=== PATIENT | male | born 1995 | race Caucasian/White ===

== ENCOUNTER 2022-04-04 08:53 | Day surgery (SDC) | payer BC ==
[~2022-04-04] VITALS: Ht 172.7 cm; Wt 72.7 kg
[2022-04-04] MEDS ORDERED: AMITRIPTYLINE H25 M1 PO (09:04)
[2022-04-04 09:47] LABS: COLLECTION METHOD CLEAN CATCH
[2022-04-04 09:51] LABS: HEMATOCRIT 47.3 % (42.0-52.0); HEMOGLOBIN 16.1 g/dl (13.5-18.0); MEAN CELL VOLUME 92 fl (80.0-100.0); MEAN CORPUSCULAR HEMOGLOBIN 31 pg (27-31); MEAN CORPUSCULAR HGB CONC 34 g/dl (33.0-37.0); MEAN PLATELET VOLUME 10.7 fl (7.4-10.4); PLATELET COUNT 276 K/mm3 (130-400); RED BLOOD COUNT 5.14 M/mm3 (4.20-5.60); REDCELL DISTRIBUTION WIDTH-CV 12.4 % (11.5-14.5)
[2022-04-04 10:03] LABS: PH 6 (5-8); URINE APPEARANCE Clear (CLEAR/HAZY); URINE BILIRUBIN Negative (NEGATIVE); URINE BLOOD 2+ (NEGATIVE); URINE COLOR Yellow (YELLOW); URINE GLUCOSE Negative (NEGATIVE); URINE KETONE Negative (NEGATIVE); URINE LEUKOCYTE ESTERASE Trace (NEGATIVE); URINE NITRATE Negative (NEGATIVE); URINE PROTEIN(semi-quant) Negative (NEGATIVE); URINE UROBILINOGEN Negative (NEGATIVE)
[2022-04-04 10:04] LABS: MUCOUS Present (NOT PRESENT); URINE BACTERIA Rare /hpf (NONE SEEN)
[2022-04-04 10:06] LABS: ALBUMIN 4.7 gm/dL (3.5-5.0); BILIRUBIN,TOTAL 2.1 mg/dL (0.2-1.2); CALCIUM 9.4 mg/dL (8.4-10.2); CREATININE, serum 1.07 mg/dL (0.72-1.25); POTASSIUM 3.9 mmol/L (3.5-4.5); TOTAL PROTEIN 8.4 gm/dL (6.2-8.1)
[2022-04-04 10:27] LABS: BAND 1 % (0-10); LYMPHOCYTE 13 % (20.0-51.0); NEUTROPHILS 78 % (42.0-75.2); PLATELET ESTIMATE NORMAL (NORMAL)
[2022-04-04] MEDS ORDERED: NORCO 325 MG-51 TAB PO (13:14)
[2022-04-04 13:55] VITALS: BP 137/81; PULSE 86; TEMP 98.9
--- NOTE | 2022-04-04 13:55 | NUR ---
PT TO BAY 2 PER CART FROM PACU. RECEIVED REPORT FROM MARCELLA BURNS. VS OBTAINED. PT TOLERATING WATER. CALL LIGHT WITHIN REACH. PT SLEEPY ON 2L O2 PER NC. PT STATES HE IS COMFORTABLE AND PAIN IS CONTROLLED. RATES PAIN 1-2/10. PT DENIES ANY OTHER NEEDS AT THIS TIME.
[2022-04-04 14:10] VITALS: BP 134/77; PULSE 75
--- NOTE | 2022-04-04 14:10 | NUR ---
PT CONTINUES TO REST COMFORTABLY. CONTINUES TO DENY ANY NEEDS AT THIS TIME.
[2022-04-04 14:25] VITALS: BP 122/69; PULSE 70
--- NOTE | 2022-04-04 14:25 | NUR ---
PT TOLERATING MUFFIN AND WATER. CONTINUES TO STATE PAIN IS TOLERABLE. PT DENIES ANY NEEDS AT THIS TIME.
[2022-04-04 14:40] VITALS: BP 136/77; PULSE 69
--- NOTE | 2022-04-04 14:40 | NUR ---
PT CONTINUES TO DENY ANY PAIN. PT STATES HE IS READY FOR DISCHARGE.
--- NOTE | 2022-04-04 15:00 | NUR ---
IV DC'D AT THIS TIME. PT TOLERATED WELL.
--- NOTE | 2022-04-04 15:10 | NUR ---
DISCHARGE EDUCATION COMPLETED WITH PT. VERBALIZED UNDERSTANDING OF HOME AND FOLLOW UP CARE. ALL QUESTIONS ANSWERED. DISCHARGE PAPERWORK GIVEN TO PT.
--- NOTE | 2022-04-04 15:20 | NUR ---
PT OFF UNIT PER WHEELCHAIR. PT DISCHARGE TO HOME WITH MOTHER PER PERSONAL VEHICLE.
== END 2022-04-04 15:20 | disposition home or self-care (01) ==
LOC: COL.ER 08:53 → SDCO 08:55 → COL.ER 08:55 → SDCO 12:30
PROVIDERS: Student in an Organized Health Care Education/Training Program
DX: K35.30 Acute appendicitis with localized peritonitis, without perforation or gangrene (principal)
CPT/HCPCS: J1100; J2405; J2543; J2704; J3010; Q9967